=== PATIENT | female | born 1970 | race Caucasian/White ===

== ENCOUNTER 2016-11-07 01:06 | Emergency (ER) | payer BC ==
[~2016-11-07] VITALS: Ht 157.5 cm; Wt 87.3 kg
[~2016-11-07 01:06] MED LIST: GLC5 PO; GLC500 PO; MELO15TA3 PO; MULT-506 PO
[2016-11-07 01:13] VITALS: O2SAT 98
[2016-11-07 01:17] VITALS: TEMP 36.8; Ht 157.5 cm; Wt 87.3 kg
[2016-11-07] MEDS ORDERED: LORAZEPAM 2 MG/ML 1 ML VIAL IV STA (01:25)
[2016-11-07 01:57] LABS: MEAN CELL VOLUME 88.7 fL (80-100); MEAN CORPUSCULAR HEMOGLOBIN 30.8 pg (25-34); MEAN CORPUSCULAR HGB CONC 34.8 g/dl (32-36); MEAN PLATELET VOLUME 9.3 fL (7.4-10.4); PLATELET COUNT 284 K/uL (130-400); RED BLOOD COUNT 4.51 M/uL (4.2-5.4); WHITE BLOOD COUNT 6.73 K/uL (4.8-10.8)
[2016-11-07] MEDS ORDERED: SITA100T3 PO (02:14)
[2016-11-07] MEDS ORDERED: GLIP10TA3 PO (02:15)
[2016-11-07] MEDS ORDERED: METF-384 PO (02:16)
[2016-11-07 02:20] LABS: PREG INTERNAL NEGATIVE QC NEG CLEAR BACKGROUND; PREG INTERNAL POSITIVE QC POS CONTROL LINE
[2016-11-07] MEDS ORDERED: SODIUM CHLORIDE 0.9% 500ML 500 ML IV STA (02:23)
[2016-11-07 02:30] LABS: ALKALINE PHOSPHATASE 28 U/L (45-117); ALT/SGPT 30 U/L (12-78); AST/SGOT 15 U/L (15-37); BLOOD UREA NITROGEN 10 mg/dl (7-18); CALCIUM 9.1 mg/dl (8.5-10.1); CARBON DIOXIDE 29 mmol/L (21-32); CHLORIDE 97 mmol/L (98-107); CREATININE 0.87 mg/dl (0.60-1.20); GLUCOSE 248 mg/dl (70-99); POTASSIUM 3.7 mmol/L (3.5-5.1); SODIUM 138 mmol/L (136-145)
[2016-11-07] MEDS ORDERED: OPTIRAY 320 IV PRN (02:30)
[2016-11-07 02:57] LABS: BASO % 0.4 %; BASO ABS # 0.03 K/uL (0-0.2); COMPLETE YES; EOS % 1.5 %; IG% 0.3 %; LYMPH % 51.4 %; LYMPH ABS # 3.46 K/uL (1.2-3.4); MONO % 4.6 %; NEUT % 41.8 %
--- NOTE | 2016-11-07 05:45 | EMERGENCY ROOM VISIT NOTE ---
History First contact with patient: 01:21 Chief Complaint: CHEST PAIN Stated Complaint: CHEST PAIN-LEFT SHOULDER DOWN TO HAND Nursing Triage Summary: pt states cp began about 40min night order selector, some sob, nausea and diaphoresis. pain in left shoudler with numbness radiating down left arm History of Present Illness The patient is a 46 year old female who presents to the Emergency Room with complaints of chest pain for the past few hours who has been underneath more stress. Patient suffers from anxiety. Patient denies prior heart disease or family history of heart disease. She does have diabetes. Patient denies fever , chills, cough, congestion, abdominal pain, leg pain or swelling, lightheadedness, dizziness, nausea, diaphoresis. No recent travel. No control. Review of Systems See HPI for pertinent positives & negatives. A total of 10 systems reviewed and were otherwise negative. Past Medical/Surgical History Medical Problems: (1) Arthroscopy of knee joint (2) Diabetes mellitus type 2 (3) Dilation and curettage Social History Smoking Status: Never Smoker Drug Use: none Marital Status: Housing Status: lives with family Occupation Status: employed Current/Historical Medications Scheduled Glipizide (Glucotrol), 10 MG PO BID Metformin Hcl (Glucophage), 1,000 MG PO BID Sitagliptin Phosphate (Januvia), 100 MG PO DAILY Allergies Coded Allergies: Adhesives (Verified Adverse Reaction, Unknown, SKIN DISCOLORATION, ) Physical Exam Vital Signs Date Time Temp Pulse Resp B/P Pulse Ox O2 Delivery O2 Flow Rate FiO2 11/07/16 03:41 85 17 114/66 94 Room Air 11/07/16 03:11 83 16 118/80 97 Room Air 11/07/16 02:41 87 18 123/73 95 Room Air 11/07/16 01:25 83 11/07/16 01:17 36.8 83 21 134/87 98 Room Air 11/07/16 01:13 98 Room Air Physical Exam VITALS: Vitals are noted on the nurse's note and reviewed by myself. Vital signs stable. GENERAL: Pleasant female anxious-appearing, in no acute distress, nondiaphoretic , well-developed well-nourished. SKIN: The skin was without rashes, erythema, edema, or bruising. There is no tenting of the skin. Capillary reflex less than 2 seconds. HEAD: Normocephalic atraumatic. EARS: External auditory canals clear, tympanic membranes pearly garcia without erythema or effusion bilaterally. EYES: Pupils equal round and reactive to light and accommodation. Conjunctivae without injection, sclerae without icterus. Extraocular movements intact. NOSE: Patent, turbinates without inflammation or discharge. MOUTH: Mucous membranes moist. Pharynx without erythema or exudate. Uvula midline. Airway patent. Tongue does not deviate. NECK: Supple without nuchal rigidity. No lymphadenopathy. No thyromegaly. Cervical spine is nontender. No JVD. HEART: Regular rate and rhythm without murmurs gallops or rubs. Chest nontender to palpation LUNGS: Clear to auscultation bilaterally without wheezes, rales or rhonchi. No dullness to percussion. No retractions or accessory muscle use. ABDOMEN: Positive bowel sounds x 4. Normal tympanic percussion. Soft, nontender, without masses or organomegaly. Robertson sign negative. No guarding or rebound tenderness. MUSCULOSKELETAL: No muscle atrophy, erythema, or edema noted. NEURO: Patient was alert and oriented to person place and time. Normal sensation to light and sharp touch. No focal neurological deficits. Medical Decision & Procedures Laboratory Results 11/07/16 01:36 Red Blood Count 4.51, Mean Corpuscular Volume 88.7, Mean Corpuscular Hemoglobin 30.8, Mean Corpuscular Hemoglobin Concent 34.8, Mean Platelet Volume 9.3, Neutrophils (%) (Auto) 41.8, Lymphocytes (%) (Auto) 51.4, Monocytes (%) (Auto) 4.6, Eosinophils (%) (Auto) 1.5, Basophils (%) (Auto) 0.4, Neutrophils # (Auto) 2.81, Lymphocytes # (Auto) 3.46, Monocytes # (Auto) 0.31, Eosinophils # (Auto) 0.10, Basophils # (Auto) 0.03 11/07/16 01:36 Test 11/07/16 01:36 11/07/16 01:42 11/07/16 04:47 White Blood Count 6.73 K/uL (4.8-10.8) Red Blood Count 4.51 M/uL (4.2-5.4) Hemoglobin 13.9 g/dL (12.0-16.0) Hematocrit 40.0 % (37-47) Mean Corpuscular Volume 88.7 fL (80-100) Mean Corpuscular Hemoglobin 30.8 pg (25-34) Mean Corpuscular Hemoglobin Concent 34.8 g/dl (32-36) Platelet Count 284 K/uL (130-400) Mean Platelet Volume 9.3 fL (7.4-10.4) Neutrophils (%) (Auto) 41.8 % Lymphocytes (%) (Auto) 51.4 % Monocytes (%) (Auto) 4.6 % Eosinophils (%) (Auto) 1.5 % Basophils (%) (Auto) 0.4 % Neutrophils # (Auto) 2.81 K/uL (1.4-6.5) Lymphocytes # (Auto) 3.46 K/uL (1.2-3.4) Monocytes # (Auto) 0.31 K/uL (0.11-0.59) Eosinophils # (Auto) 0.10 K/uL (0-0.5) Basophils # (Auto) 0.03 K/uL (0-0.2) RDW Standard Deviation 39.8 fL (36.4-46.3) RDW Coefficient of Variation 12.5 % (11.5-14.5) Immature Granulocyte % (Auto) 0.3 % Immature Granulocyte # (Auto) 0.02 K/uL (0.00-0.02) Red Blood Cell Morphology Unremarkable Anion Gap 12.0 mmol/L (3-11) Est Creatinine Clear Calc Drug Dose 81.1 ml/min Estimated GFR () 91.3 Estimated GFR (Non- 78.8 BUN/Creatinine Ratio 12.0 (10-20) Calcium Level 9.1 mg/dl (8.5-10.1) Total Bilirubin 0.5 mg/dl (0.2-1) Direct Bilirubin mg/dl (0-0.2) Aspartate Amino Transf (AST/SGOT) 15 U/L (15-37) Alanine Aminotransferase (ALT/SGPT) 30 U/L (12-78) Alkaline Phosphatase 28 U/L (45-117) Total Creatine Kinase 64 U/L (26-192) Creatine Kinase MB < 0.5 ng/ml (0.5-3.6) Creatine Kinase MB Ratio (0-3.0) Total Protein 6.7 gm/dl (6.4-8.2) Albumin 3.5 gm/dl (3.4-5.0) Lipase 186 U/L (73-393) Human Chorionic Gonadotropin, Qual NEG (NEG) Chemistry Specimen Hemolysis Bedside D-Dimer > 450 ng/mlFEU (0-450) Troponin I < 0.015 ng/ml (0-0.045) Medications Administered Medications (Trade) Dose Ordered Sig/Willie Route Start Time Stop Time Status Last Admin Dose Admin Lorazepam 1 mg 1 mg NOW STAT IV 11/07/16 01:25 11/07/16 01:26 DC 11/07/16 01:47 1 MG Sodium Chloride (Nss 500ml) 500 ml @ 999 mls/hr Q31M STAT IV 11/07/16 02:23 11/07/16 02:53 DC 11/07/16 02:47 999 MLS/HR ED Course Prior records/ancillary studies reviewed. Triage Nursing notes reviewed. Additional history obtained from family. The patient's history was concerning for chest pain. Differential diagnosis: Etiologies such as cardiac ischemia, aortic dissection, pulmonary embolism, pneumonia, pneumothorax, musculoskeletal, infections, pericarditis, myocarditis , esophageal rupture, gastrointestinal, as well as others were entertained. Physical examination: As above. ER treatment provided: ativan On reassessment the patient felt better. Diagnostic interpretation by me: The electrocardiogram was negative for pathologic change. Normal sinus, normal intervals, no acute ST-T wave changes. Impression normal sinus interpreted by myself The labs revealed negative troponin 2 hyperglycemia without DKA Imaging studies: Chest x-ray with no acute consolidation or pneumothorax per my interpretation CTA negative for PE per stat radiology Exam and history seem consistent with noncardiac chest pain. Patient felt much better after being medicated as above. Negative CTA. 2 troponins negative 2 that are 2 hours apart. Normal EKG. She was advised to rest, stay well- hydrated, decrease stress and to follow-up with family care in a day or 2 or here in the ER sooner for chest pain, difficulty breathing, worsening signs or symptoms or as needed. She was advised to monitor her blood sugars as it was high today.By the evaluation outlined above emergent etiologies such as cardiac ischemia, aortic dissection, pulmonary embolism, pneumonia, pneumothorax, infections, pericarditis, myocarditis, gastrointestinal, as well as others were deemed relatively unlikely. The pt informed about the findings as listed above. All questions were answered and pleased with the treatment. Return instructions were outlined and the patient was discharged in stable condition. Referral: The patient was referred back to primary care physician for follow-up in 2 to 3 days for a recheck of the current condition. Case reviewed with my attending Medical Decision As above Impression Primary Impression: Precordial chest pain Additional Impression: Hyperglycemia due to type 2 diabetes mellitus Departure Information Dispostion Home / Self-Care Condition GOOD Referrals Mirta Ang D.O. (PCP) Patient Instructions My [facility] Additional Instructions Ibuprofen(Motrin, Advil) may be used for fever or pain. Use 600mg every six hours as needed. Take with food. Avoid using more than 2400mg in a 24 hour period. Do not use 2400mg per day for more than three consecutive days without physician direction. Prolonged inappropriate use can lead to stomach upset or ulcers. (AND/OR) Acetaminophen(Tylenol) may be used for fever or pain. Use 1000mg every six hours as needed. Avoid using more than 3000mg in a 24 hour period. Monitor your blood sugars. Rest and drink plenty of fluids as tolerated. Continue current medications. Avoid strenuous activities and anything that worsens your pain. Resume normal activities once your symptoms resolve. Return to the ER immediately for worsening or persistent chest pain, abdominal pain, vomiting, fevers, chest pains, difficulty breathing, worsening of your condition, or as needed. Follow up with your primary physician in 2-3 days for a recheck of your current condition. Problem Qualifiers Additional Impression: Hyperglycemia due to type 2 diabetes mellitus Diabetes mellitus alf insulin use: with alf use Qualified Codes: E11.65 - Type 2 diabetes mellitus with hyperglycemia; Z79.4 - senior living ( current) use of insulin
[2016-11-07 06:03] VITALS: BP 113/63; PULSE 81; O2SAT 95
--- NOTE | 2016-11-07 09:13 | DIAGNOSTIC IMAGING REPORT ---
CT ANGIOGRAM OF THE CHEST CLINICAL HISTORY: Atypical chest pain. COMPARISON STUDY: Chest x-ray dated 11/07/2016. TECHNIQUE: Following the IV administration of 89 cc of Optiray 320, CT angiogram of the chest was performed from the upper abdomen to the thoracic inlet utilizing the pulmonary embolus protocol. Images are reviewed in the axial, sagittal, and coronal planes. 3-D MIPS images are created and assessed. IV contrast was administered without complication. CT DOSE: 429.80 mGy.cm FINDINGS: Thyroid: Imaged portions of the thyroid gland are normal in size and attenuation. Thoracic aorta: The thoracic aorta is normal in caliber and demonstrates standard 3-vessel arch anatomy. No dissection is seen. Pulmonary vasculature: The pulmonary trunk is normal in caliber. There are no filling defects identified in main, lobar, or segmental pulmonary branches to suggest pulmonary embolus. Heart: The heart is normal in size and configuration, and without pericardial effusion. Lungs and pleural spaces: The lungs and pleural spaces are clear. The trachea and central airways are patent. Mediastinum: There is no mediastinal lymphadenopathy. [place]: Clear. Axillae: There is no axillary lymphadenopathy. Upper abdomen: There is a small hiatal hernia. The liver is steatotic. Skeletal structures: No lytic or blastic bony lesions are seen. IMPRESSION: 1. There is no evidence of pulmonary embolus in the main, lobar, or segmental pulmonary arteries. 2. The lungs are clear. 3. Hepatic steatosis. Electronically signed by: Luis Eduardo Mercado M.D. 11/07/2016 9:11 AM Dictated Date/Time: 11/07/2016 9:08 AM
--- NOTE | 2016-11-07 10:06 | DIAGNOSTIC IMAGING REPORT ---
SINGLE VIEW CHEST CLINICAL HISTORY: Atypical chest pain. FINDINGS: An AP, portable, upright chest radiograph is obtained. No prior studies are available for comparison at the time of dictation. The examination is degraded by portable technique, large body habitus, and patient rotation. The cardiomediastinal silhouette is unremarkable. There are low lung volumes with bibasilar atelectasis. The lungs and pleural spaces are otherwise clear. No pneumothorax is seen. The bony thorax is grossly intact. IMPRESSION: Low lung volumes with no active disease in the chest. Electronically signed by: Luis Eduardo Mercado M.D. 11/07/2016 10:04 AM Dictated Date/Time: 11/07/2016 10:04 AM
== END 2016-11-07 06:05 | disposition home or self-care (01) ==
LOC: C.EDB 01:07
DX: R07.2 Precordial pain (principal); E11.65 Type 2 diabetes mellitus with hyperglycemia; Z98.890 Other specified postprocedural states; Z79.84 Long term (current) use of oral hypoglycemic drugs; Z91.09 Other allergy status, other than to drugs and biological substances

== ENCOUNTER → 2017-02-19 | Outpatient (CLI) | payer BC ==
[~2017-02-19] MED LIST changes: -GLC5 PO; -GLC500 PO; +GLIP10TA3 PO; -MELO15TA3 PO; +METF-384 PO; -MULT-506 PO; +SITA100T3 PO
== END | disposition home or self-care (01) ==
LOC: C.LABSPEC 13:36
PROVIDERS: ATTEND Obstetrics & Gynecology
DX: B37.3 Candidiasis of vulva and vagina (principal)

== ENCOUNTER → 2017-02-19 | Outpatient (CLI) | payer BC | END | disposition home or self-care (01) | LOC: C.LAB1850 08:25 | PROVIDERS: ATTEND Obstetrics & Gynecology | DX: N95.1 Menopausal and female climacteric states (principal) ==

== ENCOUNTER → 2017-03-11 | Outpatient (CLI) | payer BC ==
[2017-03-17 12:23] LABS: HERPES SIMPLEX CULT SOURCE OTHER-VULVA; HERPES SIMPLEX VIRUS CULT NOT ISOLATED (NOT ISOLATED)
== END | disposition home or self-care (01) ==
LOC: C.LABSPEC 11:48
PROVIDERS: ATTEND Physician Assistant
DX: N90.89 Other specified noninflammatory disorders of vulva and perineum (principal)

== ENCOUNTER 2020-04-01 20:43 | Inpatient (IN) ==
--- OUTSIDE RECORDS SUMMARY | 2020-04-01 20:45 | External Medical Summary | Continuity of Care Document ---
:1970 Author Name Maritza Metzger, Provider Address Unavailable Unavailable , Care Team Providers Name Role Phone Sumeet Omer [email or web address] [email or web address] PA-C, [email or web address] SUMEET OMER M.D. Unavailable Unavailable Unavailable Unavailable Unavailable Problems Perimenopause (627.2) (N95.1) Anxiety (300.00) (F41.9) Encounter for routine gynecological examination (V72.31) (Z0 1.419) Irregular menstrual cycle (626.4) (N92.6) Pap smear for cervical cancer screening (V76.2) (Z12.4) Heart murmur (785.2) (R01.1) Pelvic pain (R10.2) Hypercholesterolemia (272.0) (E78.00) Hypertension (401.9) (I10) Type 2 diabetes mellitus (250.00) (E11.9) Osteoarthritis of knees, bilateral (715.96) (M17.0) Vulvovaginitis due to yeast (112.1) (B37.3) Vulvar itching (698.1) (L29.2) Skin cyst (706.2) (L72.9) Vulvar fissure (624.8) (N90.89) Allergies and Adverse Reactions Percocet TABS (Allergy) Propylene Glycol LIQD (Allergy) Remeron (Allergy) Medications metFORMIN HCl - 1000 MG Oral Tablet; RAMANA E ONE TABLET BY MOUTH TWICE DAILY. TAKE WITH FOOD Domenica Omer Quantity: 180 Refills: 3 glipiZIDE 5 MG Oral Tablet; TAKE 1 TABLET TWICE DAILY. Domenica Aquino Quantity: 180 Refills: 3 Januvia 100 MG Oral Tablet; take 1 tablet by mouth once aureliano y Quantity: 30 Refills: 5 Jardiance 10 MG Oral Tablet; TAKE 1 TABLET BY MOUTH ONCE LEANN LY Start: 22-Apr-2018 Refills: 0 traMADol HCl - 50 MG Oral Tablet; TAKE ONE TABLET BY MOUTH T HREE TIMES DAILY Start: 22-Apr-2018 Quantity: 40 Refills: 0 Cymbalta 30 MG Oral Capsule Delayed Rele ase Particles; take 1 capsule by mouth once daily Start: 22-Apr-2018 Refills: 0 Meloxicam 15 MG Oral Tablet; TAKE 1 TABLET DAILY. Start: 22-Apr-2018 Quantity: 30 Refills: 5 Metoprolol Tartrate 25 MG Oral Tablet; TAKE 1 TABLET DAILY. Quantity: 90 Refills: 3 Pravastatin Sodium 80 MG Oral Tablet; TAKE 1 TABLET AT BEDTI ME Start: 22-Apr-2018 Quantity: 90 Refills: 3 Nystatin-Triamcinolone 713892-0.1 UNIT/G M-% External Ointment; APPLY SPARINGLY TO AFFECTED AREA TWICE A DAY FOR 7 TO 14 DAYS. TENZIN Blevins Start: 02-Jun-2017 Quantity: 1 60 GM Tube Refills: 0 LORazepam 0.5 MG Oral Tablet; TAKE 1 TABLET Every 8 ho urs Domenica Martines Start: 22-Apr-2018 Quantity: 30 Refills: 1 hydrOXYzine HCl - 25 MG Oral Tablet; TAKE 1 TABLET AT BEDTIM E NEEDED. Quantity: 14 Refills: 1 Procedures History of Dilation And Curettage Status : Completed History of Hysteroscopy With Endometrial Ablation Status: Completed History of uterine surgery Status: Compl eted History of Hemorrhoidectomy Status: Comp leted History of Knee Surgery Status: Complete d Immunizations Immunizations not documented Family History Mother Family history of Alzheimer's disease (V17.2) (Z82.0) Status : Active Family history of Anxiety (300.00) (F41.9) Status: Active Family history of depression (V17.0) (Z81.8) Status: Active Family history of diabetes mellitus (V18.0) (Z83.3) Status: Active Sibling Family history of Anxiety (300.00) (F41.9) Status: Active Family history of depression (V17.0) (Z81.8) Status: Active Social History - Smoking Status Ex-smoker Plan of Treatment Planned Observations Planned Goals not documented Results No Known Results Results not documented Encounters Appointment; Sumeet Omer M.D. 01-Jun-2018 10:30 Encounter Diagnosis: Problem not documented Appointment; Sumeet Omer M.D. 22-Apr-2018 14:30 Encounter Diagnosis: Problem not documented Appointment; [place] [id number] 22-Apr-2018 14:15 Encounter Diagnosis: Problem not documented Appointment; Sumeet Omer M.D. 05-Jul-2018 16:00 Encounter Diagnosis: Problem not documented
[2020-04-01 21:59] LABS: Amphetamines+Metham, Urine Neg (Neg); Barbiturates, Urine Neg (Neg); Benzodiazepine, Urine Neg (Neg); Cocaine, Urine Neg (Neg); MDMA (Ecstacy), Urine Neg (Neg); Methadone, Urine Neg (Neg); Opiate, Urine Neg (Neg); Phencyclidine, Urine Neg (Neg)
[2020-04-01 22:01] LABS: Pregnancy Test, Urine Negative (Negative)
[2020-04-01 22:01] LABS: Appearance Urine Clear (Clear); Bilirubin Urine Negative (Negative); Blood Urine Negative (Negative); Color Urine Yellow; Glucose Urine UA 3+ (Negative); Ketones Urine Trace (Negative); Leukocyte Esterase Urine Negative (Negative); Nitrite Urine Negative (Negative); Protein Urine Negative (Negative); Specific Gravity Urine 1.016 (1.000-1.030); Urobilinogen Urine Negative (Negative)
[2020-04-01 22:24] LABS: Basophils # (auto) 0.04 K/uL (0-0.2); Basophils % (auto) 0.4 %; Eosinophils # (auto) 0.03 K/uL (0-0.5); Eosinophils % (auto) 0.3 %; Hematocrit (blood only) 42.1 % (37-47); Hemoglobin 14.5 g/dL (12.0-16.0); Immature Granulocytes # (auto) 0.02 K/uL (0.00-0.02); Immature Granulocytes % (auto) 0.2 %; Lymphocytes # (auto) 2.89 K/uL (1.2-3.4); Lymphocytes % (auto) 30.3 %; Mean Corpuscular Hemoglobin 30.6 pg (25-34); Mean Corpuscular Hgb Conc 34.4 g/dL (32-36); Mean Corpuscular Volume 88.8 fL (80-100); Mean Platelet Volume 9.5 fL (7.4-10.4); Monocytes # (auto) 0.38 K/uL (0.11-0.59); Neutrophils # (auto) 6.18 K/uL (1.4-6.5); Neutrophils % (auto) 64.8 %; Platelet Count 312 K/uL (130-400); RDW Coefficient of Variation 12.8 % (11.5-14.5); RDW Standard Deviation 40.8 fL (36.4-46.3); Red Blood Count 4.74 M/uL (4.2-5.4); White Blood Count 9.54 K/uL (4.8-10.8)
[2020-04-01 22:42] LABS: Salicylate 2.2 mg/dl (2.8-20)
[2020-04-01 22:43] LABS: Acetaminophen < 2 ug/ml (10-30); Alanine Aminotransferase 25 U/L (12-78); Albumin Level 3.9 gm/dl (3.4-5.0); Aspartate Aminotransferase 14 U/L (15-37); BUN Creatinine Ratio 8.6 (10-20); Blood Urea Nitrogen 7 mg/dl (7-18); Calcium 9.4 mg/dl (8.5-10.1); Carbon Dioxide 28 mmol/L (21-32); Chloride 98 mmol/L (98-107); Est GFR (African American) 90.7; Est GFR (Non-African American) 78.2; Glucose 287 mg/dl (70-99); Potassium 3.3 mmol/L (3.5-5.1); Sodium 135 mmol/L (136-145)
[2020-04-01 22:54] LABS: Albumin Globulin Ratio 1.1 (0.9-2); Alkaline Phosphatase 40 U/L (45-117); Bilirubin,Total 0.5 mg/dl (0.2-1); Globulin 3.7 gm/dl (2.5-4.0); Total Protein 7.6 gm/dl (6.4-8.2)
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
[2020-04-02] MEDS ORDERED: SODIUM CHLORIDE 0.65% NA SOLN 45 ML (OCEAN) PRN (03:58)
[2020-04-02] MEDS ORDERED: BISMUTH SUBSALICYLATE PER ML OMNICELL CHARGE PO PRN (03:58)
[2020-04-02] MEDS ORDERED: MAGNESIUM HYDROXIDE SUSP 30 ML UDC PO PRN (03:58)
[2020-04-02] MEDS ORDERED: ALUMINUM/MAGNESIUM SUSP 30 ML UDC PO PRN (03:58)
[2020-04-02] MEDS ORDERED: ACETAMINOPHEN 325 MG TAB PO PRN (03:58)
[2020-04-02] MEDS ORDERED: METOPROLOL TARTRATE 25 MG TAB PO ONE (07:45)
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
[2020-04-02] MEDS ORDERED: PHARMACY GLYCEMIC MGMT CONSULT PRN (08:41)
[2020-04-02] MEDS: DULOXETINE HCL 60 MG CAP PO SCH (08:47)
[2020-04-02] MEDS: DULOXETINE HCL 20 MG CAP PO SCH (08:47)
[2020-04-02] MEDS ORDERED: DEXTROSE 50% 50 ML SYRINGE IV PRN (09:00)
[2020-04-02] MEDS ORDERED: GLUCAGON FOR INJ 1 MG VIAL IM PRN (09:00)
[2020-04-02] MEDS ORDERED: DULOXETINE HCL 20 MG CAP PO SCH (09:00)
[2020-04-02] MEDS ORDERED: GLUCOSE 10 TABS/TUBE PO PRN (09:00)
[2020-04-02] MEDS ORDERED: CARBOHYDRATES FOR HYPOGLYCEMIA PO PRN (09:00)
[2020-04-02] MEDS ORDERED: INSULIN GLARGINE SOLOSTAR 100 UNITS/ML 3 ML PEN SC SCH ×3 (09:00→21:00)
[2020-04-02] MEDS ORDERED: BuPROPion XL 150 MG TABCR PO SCH (09:00)
[2020-04-02] MEDS ORDERED: GLUCOSE 40% GEL 15 GM TUBE PO PRN (09:00)
[2020-04-02] MEDS: INSULIN ASPART 100 UNITS/ML 3 ML PEN SC SCH ×4 (09:39→21:04)
--- NOTE | 2020-04-02 10:22 | Pharmacy Report ---
Glycemic Control Consultation - Date of Service April 02, 2020 - Scope Scope: Glycemic Pharmacist consulted for glycemic control and to write orders per [facility] inpatient glycemic control protocol. - Objective Weight: 71.5 kg Accuchecks BSG (last 24hrs): 04/01/20 04/02/20 22:01 07:47 Glucose 287 H POC Glucose 213 H Laboratory Data (last 24hrs): 04/01/20 22:01 Potassium 3.3 L Carbon Dioxide 28 Anion Gap 9.0 Creatinine 0.86 Est Cr Clr Drug Dosing Not Reportable - Recent Pertinent Medications Outpatient Anti-diabetic Regimen: * Trulicity 0.75 mg SQ weekly * Jardiance 25 mg PO qAM * Lantus 15 units nightly * metformin? (found in pill bag) Risk Factors for Insulin Resistance: * Diet: T2DM * Mechanical Ventilation: - Assessment & Plan Assessment & Plan: ASSESSMENT: * Ms Boateng is a 49 y/o F with a PMH of T2DM on two injectables and one or two oral medications. She presents with MDD and a BSG of 213 mg/dL. * Will start weight-based Lantus and Novolog dosing. Give 10 units at first (weight-based stress of 2) then provide a scale for this evening based upon weight. Novolog weight-based stress of 2. * Pt is maintained on oral antidiabetic agents as an outpatient * Oral agents are not recommended for inpatient use d/t drug interactions, changing PO intake, and difficulty titrating for acute hyper/hypoglycemia. ADA recommends re-initiating outpatient oral agents 1-2 days prior to discharge if/when appropriate if they were held on admission. * Will hold oral agents for admission and utilize SQ basal bolus insulin regimen which is the recommended regimen for inpatient glycemic control. * Will initiate weight based insulin dosing for insulin carrie patient and titrate based on BSG trends. PLAN FOR INPATIENT GLYCEMIC CONTROL: * Holding outpatient oral diabetes medications * Basal insulin * Lantus 10 units SQ x 1 then 10-20 units SQ BID * 10 units if BSG < 180 mg/dL * 15 units if BSG 180-250 mg/dL * 20 units if BSG > 250 mg/dL * Bolus insulin * NovoLog per scale ACHS or Q6hrs while NPO * Goal Range: Low 110 mg/dL - High 140 mg/dL * Correction Factor: 30 mg/dL/unit * Nutritional / Prandial insulin per carb ratio of 1 unit per 10 grams CHO consumed * Please note that the plan above was derived based on current level of insulin resistance and hospital stress. These recommendations are appropriate for inpatient admission only. Plan of care upon discharge will need to be reassessed to avoid potential outpatient hypo/hyperglycemia. Thank you.
[2020-04-02] MEDS ORDERED: INSULIN ASPART 100 UNITS/ML 3 ML PEN SC SCH (13:21)
[2020-04-02] MEDS ORDERED: METOPROLOL TARTRATE 25 MG TAB PO STA (14:50)
[2020-04-02] MEDS ORDERED: ONDANSETRON 4 MG OD TAB PO PRN (16:40)
[2020-04-02] MEDS ORDERED: METFORMIN HCL 500 MG TAB PO SCH (17:45)
[2020-04-02] MEDS: METOPROLOL TARTRATE 25 MG TAB PO SCH (21:25)
[2020-04-02] MEDS ORDERED: INSULIN GLARGINE SOLOSTAR 100 UNITS/ML 3 ML PEN SQ SCH (22:00)
[2020-04-03] MEDS: LORATADINE 10 MG TAB PO SCH (08:43)
[2020-04-03] MEDS: ASPIRIN 81 MG ECTAB PO SCH (08:44)
[2020-04-03] MEDS: METOPROLOL TARTRATE 25 MG TAB PO SCH (08:44)
[2020-04-03] MEDS: DULOXETINE HCL 20 MG CAP PO SCH (08:44)
[2020-04-03] MEDS: DULOXETINE HCL 60 MG CAP PO SCH (08:44)
[2020-04-03] MEDS: CHOLECALCIFEROL 1,000 UNITS 25 MCG TAB PO SCH (08:45)
[2020-04-03] MEDS: PANTOprazole 40 MG TAB PO SCH (08:45)
[2020-04-03] MEDS ORDERED: NON-FORMULARY MEDICATION (Empagliflozin [Jardiance] 25 MG) PO SCH (09:00)
[2020-04-03] MEDS ORDERED: METOPROLOL TARTRATE 25 MG TAB PO SCH (09:00)
[2020-04-03] MEDS: INSULIN ASPART 100 UNITS/ML 3 ML PEN SC SCH ×4 (09:30→20:58)
[2020-04-03] MEDS: INSULIN GLARGINE SOLOSTAR 100 UNITS/ML 3 ML PEN SC SCH ×2 (09:32→20:57)
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
--- NOTE | 2020-04-03 11:28 | Communication Note ---
Date of Service: April 03, 2020 [facility] Saw PCP, Con Oquendo DO, on 10/25/2019 for increasing anxiety and irritability. She reported marital conflict , and was prescribed Ativan 0.5 mg twice daily as needed. She was instructed to follow-up in 6 months.
--- NOTE | 2020-04-03 13:37 | Pharmacy Report ---
Glycemic Control Progress Note - Date of Service April 03, 2020 - Scope Glycemic Pharmacist consulted for glycemic control to write orders per [facility] inpatient glycemic control protocol. - Objective Accuchecks BSG(last 24 hours):: 04/02/20 04/02/20 04/03/20 17:27 20:24 08:04 POC Glucose 201 H 210 H 247 H 04/03/20 12:21 POC Glucose 238 H - Recent Pertinent Medications The patient is currently receiving: * Basal insulin: Lantus 10-15 units every 12 hours * Correctional Insulin: Novolog Correction per scale ACHS Goal Range: Low 110 mg/dL - High 140 mg/dL Correction Factor: 30 mg/dL/unit * Prandial insulin: Per carb ratio of 1 unit per 10 grams CHO consumed - Outpatient Anti-Diabetic Meds Trulicity 0.75 mg weekly SQ Lantus 15 units qAM Jardiance 25 mg PO qAM - Assessment & Plan ASSESSMENT: * See progress note from 04/02/2020 for more background info, in short: * Pt receiving SQ basal bolus insulin regimen for hyperglycemia secondary to baseline DM (outpatient regimen on hold). * Patient is currently receiving an average of 41 units of insulin per day * 25 units of basal insulin * 21 units of prandial/correctional insulin * BSGs ranging 201 - 213 mg/dl over the past 24hrs * Changes needed to insulin regimen: * AM Fasting BSG = 247 mg/dl. This is above goal range for patient based on inpatient targets and co-morbidities. Therefore Basal insulin will be increased by 20% to 18 units SQ BID. * Post-prandial BSGs were stable yesterday but will tighten to weight-based stress of 3 * Total daily dose = ~60 units. Increased insulin appropriately. * Additional notes / comments: hold oral agents PLAN FOR INPATIENT GLYCEMIC CONTROL: * INCREASING Lantus/NPH to 16 units SQ BID * TIGHTENING correction factor to 20 mg/dl/unit * TIGHTENING carb ratio to 1 unit per 7 grams CHO consumed * Continuing goal range of Low 110 mg/dL - High 140 mg/dL * Please note that the plan above was derived based on current level of insulin resistance and hospital stress. These recommendations are appropriate for inpatient admission only. Plan of care upon discharge will need to be reassessed to avoid potential outpatient hypo/hyperglycemia. Thank you.
[2020-04-03] MEDS: METOPROLOL TARTRATE 50 MG TAB PO SCH (21:00)
[2020-04-03 22:54] LABS: Marijuana Quant, GCMS Urine >5000 ng/mL (<5)
[2020-04-04] MEDS: DULOXETINE HCL 20 MG CAP PO SCH (09:34)
[2020-04-04] MEDS: LORATADINE 10 MG TAB PO SCH (09:34)
[2020-04-04] MEDS: METOPROLOL TARTRATE 50 MG TAB PO SCH ×2 (09:35→20:50)
[2020-04-04] MEDS: DULOXETINE HCL 60 MG CAP PO SCH (09:35)
[2020-04-04] MEDS: ASPIRIN 81 MG ECTAB PO SCH (09:35)
[2020-04-04] MEDS: PANTOprazole 40 MG TAB PO SCH (09:36)
[2020-04-04] MEDS: CHOLECALCIFEROL 1,000 UNITS 25 MCG TAB PO SCH (09:36)
[2020-04-04] MEDS: INSULIN GLARGINE SOLOSTAR 100 UNITS/ML 3 ML PEN SC SCH ×2 (09:39→20:51)
[2020-04-04] MEDS: INSULIN ASPART 100 UNITS/ML 3 ML PEN SC SCH ×4 (09:40→20:52)
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
--- NOTE | 2020-04-04 13:57 | Pharmacy Report ---
Pharmacy Glycemic Short Note 2 - Date of Service April 04, 2020 - Glycemic Short BSG Results (Last 24 hours): 04/03/20 04/03/20 04/04/20 17:18 20:35 08:40 POC Glucose 237 H 278 H 228 H 04/04/20 12:41 POC Glucose 258 H ASSESSMENT: 04/04 * Patient received total of 68 units of insulin yesterday, of which 32 units were basal insulin * Fasting BSG this AM elevated at 228 mg/dL - plan to increase ~25% * Tighten CF/CR - plan to order A1C for tomorrow as unclear outpatient BSG control PLAN FOR INPATIENT GLYCEMIC CONTROL: * Hold outpatient oral diabetes medications * Basal insulin - increase * Lantus 20 units SQ BID * Bolus insulin * NovoLog per scale ACHS or Q6hrs while NPO * Goal Range: Low 110 mg/dL - High 140 mg/dL * Correction Factor: 12 mg/dL/unit * Nutritional / Prandial insulin per carb ratio of 1 unit per 4 grams CHO consumed PLAN FOR DISCHARGE: * tbd
[2020-04-05 07:47] LABS: Estimated Average Glucose 197 mg/dl; Hemoglobin A1C 8.5 % (4.5-5.6)
[2020-04-05] MEDS: ASPIRIN 81 MG ECTAB PO SCH (08:35)
[2020-04-05] MEDS: DULOXETINE HCL 20 MG CAP PO SCH (08:35)
[2020-04-05] MEDS: LORATADINE 10 MG TAB PO SCH (08:35)
[2020-04-05] MEDS: DULOXETINE HCL 60 MG CAP PO SCH (08:35)
[2020-04-05] MEDS: METOPROLOL TARTRATE 50 MG TAB PO SCH (08:35)
[2020-04-05] MEDS: PANTOprazole 40 MG TAB PO SCH (08:36)
[2020-04-05] MEDS: CHOLECALCIFEROL 1,000 UNITS 25 MCG TAB PO SCH (08:36)
[2020-04-05] MEDS ORDERED: INSULIN GLARGINE SOLOSTAR 100 UNITS/ML 3 ML PEN SC SCH (09:00)
[2020-04-05] MEDS: INSULIN ASPART 100 UNITS/ML 3 ML PEN SC SCH (09:21)
--- NOTE | 2020-04-05 12:10 | Discharge Summary ---
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 Albumin/Globulin Ratio TSH Urine Color Urine Appearance Urine pH Ur Specific Taylor Urine Protein Urine Glucose (UA) Urine Ketones Urine Blood Urine Nitrite Urine Bilirubin Urine Urobilinogen Ur Leukocyte Esterase Urine Test Salicylates Urine Opiates Screen Ur Methadone, Qual Acetaminophen Urine Barbiturates Ur Phencyclidine (PCP) U Amphetamin/Meth Scrn MDMA (Ecstasy) Screen U Benzodiazepines Scrn Ur Cocaine Metabolite U Marijuana (THC) Screen U Marijuana THC Carboxy Drug Screen Comment Ethyl Alcohol mg/dL 04/05/20 07:34 WBC RBC Hgb Hct MCV MCH MCHC RDW Std Deviation RDW Coeff of Perez Plt Count MPV Immature Gran % (Auto) Neut % (Auto) Lymph % (Auto) [place] % (Auto) Eos % (Auto) Baso % (Auto) Immature Gran # (Auto) Neut # (Auto) Lymph # (Auto) [place] # (Auto) Eos # (Auto) Baso # (Auto) Sodium Potassium Chloride Carbon Dioxide Anion Gap BUN Creatinine Est Cr Clr Drug Dosing Est GFR ( Amer) Est GFR (Non-Af Amer) BUN/Creatinine Ratio Glucose POC Glucose 229 H Estimat Average Glucose Hemoglobin A1c Calcium Total Bilirubin AST ALT Alkaline Phosphatase Total Protein Albumin Globulin Albumin/Globulin Ratio TSH Urine Color Urine Appearance Urine pH Ur Specific Taylor Urine Protein Urine Glucose (UA) Urine Ketones Urine Blood Urine Nitrite Urine Bilirubin Urine Urobilinogen Ur Leukocyte Esterase Urine Test Salicylates Urine Opiates Screen Ur Methadone, Qual Acetaminophen Urine Barbiturates Ur Phencyclidine (PCP) U Amphetamin/Meth Scrn MDMA (Ecstasy) Screen U Benzodiazepines Scrn Ur Cocaine Metabolite U Marijuana (THC) Screen U Marijuana THC Carboxy Drug Screen Comment Ethyl Alcohol mg/dL Hospital Course (1) Mood disorder: 04/02- Differential includes MDD, bipolar, BPD or other personality disorder, and substance induced mood disorder (UDS + THC). Do not see any evidence of autism, but will clarify this with her outpatient psychiatrist. -Continue suicide checks for safety, encourage participation in groups and therapy, work on healthy coping skills and discharge safety plan. -Get collateral information from friends or family and outpatient psychiatrist, and review records to clarify current and past med trials. -Continue duloxetine 80 mg daily for now while attempting to get records and clarify diagnoses and current treatment. -Recommend family meeting with her mother and/or sister in [facility], as she plans to go and stay with them after discharge. 04/03 - Clarified diagnosis with outpatient psychiatrist: depression, anxiety, and cluster B traits are reported. Clarified she is only prescribed duloxetine and prn lorazepam (from PCP) for these diagnoses at this time. - Pt has verbalized willingness to schedule a family meeting with her sister, and reported plans to live with her sister in [place] after discharge - Continue current medication regimen at this time, as patient is reporting improvement in mood now that she has been able to focus attention on aftercare planning 04/04 - Family meeting held with her mother today, and she plans to stay with her temporarily in [place] after discharge, until her PFA hearing on 04/15. Working on discharge safety plan, and plan to ensure ongoing mental health treatment; complicated by PFA in fact the patient is going to [place] to stay with family after discharge, but wants care in [facility]. - Coordinated with Dr. Davison, and patient now agreeing for referral for individual psychotherapy. 04/05 -Although the patient is being given a diagnosis at discharge of major depressive disorder, recurrent, her presentation remains somewhat atypical. She denies that she has had expansive or elated mood, and, instead, describes her mood as being depressed prior to and at the time of admission. It may be that the patient is presenting with symptoms of an agitated depression. We have recommended mood stabilizers, but the patient is declining these medications and says that she feels that her current medications are "all she needs." -Currently, the patient's affect is generally euthymic, and she reports her mood as being "much better." -She plans to live with her family in [place]. There had been some question as to whether she would live with her sister or her mother, but the decision has been for her to live with her mother. (2) Hypertension: 04/02 - Metoprolol 25mg now, get OP med list and resume home meds once clarified 04/03 - Confirmed home dose was metoprolol 25mg BID; however, blood pressure remains rather elevated - Recommending titration to 50mg BID. Risks, benefits, and potential side effects reviewed and patient is agreeable with this change (3) Diabetes: 04/02 - Continue home meds and confirm doses w/ OP records from [facility]. -Diabetic diet, BG per protocol. Consult diabetic pharmacist. 04/05 -The patient is fully conversant with her diabetic medication regimen, including insulin administration. She is also knowledgeable about her diabetic diet and is able to describe her strategies for maintaining optimal blood glucose levels.. Mental Health & Subst Abuse Tx Psychiatrist Name of Psychiatrist: Dr. Davison Psychiatrist's Date of Appointment with Psychiatrist: 04/25/20 Time of Appointment with Psychiatrist: 8am Psychiatrist Release of Information: Obtained, Reviewed and Signed Therapist Name of Therapist: [facility] - Safia Blackburn LCSW Therapist's Date of Therapist Appointment: 04/08/20 Time of Therapist Appointment: 9:00am Therapy Appointment Comment: Linda Olivera, [id number], [place], [place] Therapist Release of Information: Obtained, Reviewed and Signed Solder Making Laborer Name of Solder Making Laborer: . Post Discharge Appointments Primary Care Physician Name Of Family Doctor: Con Oquendo MD Primary Care Date of Appointment with PCP: 04/16/20 Time of Appointment with PCP: 3:30pm Provider Appointment Comment: Zoom appointment Primary Care Release of Information: Obtained, Reviewed and Signed Smoking Cessation Counseling Tobacco Cessation Medication Prescribed at Discharge: Not Applicable/Non-Smoker Contact Information Discharge Discharge Address: [address] [place] [id number] Discharge Plan Discharge Items Patient Disposition: Home - Self-Care Reason For Visit: MDD Discharge Diagnosis: MDD Activity: Resume your previous activity Non-emergency contact: Primary Care Provider and Psychiatrist Call non-emergency contact if: you have any medication questions and your symptoms worsen Follow-up/Referrals: Con Oquendo, DO [Primary Care Provider] - Diet: Carb Count or DM1 Addtl Attending Provider Instructions: SPECIAL CARE INSTRUCTIONS: 1. Follow through with your scheduled aftercare appointments. If unable to keep an appointment, please call to reschedule. 2. Take your medication only as prescribed. Medication should not be changed or stopped without the approval of your doctor. In the event of worsening symptoms or concerns about side effects, contact your doctor immediately. 3. Utilize new healthy coping skills, anger management skills, and stress management skills learned during your hospitalization. Journal feelings and process them with a support person. Identify stressors or situations that may result in relapse, deterioration or inappropriate behaviors and develop a plan to deal with those issues. 4. If your coping skills are ineffective and you are in crisis, contact your outpatient providers for direction. If unable to reach your providers, please call the CAN HELP LINE AT or go to the closest Emergency Room. 5. Avoid alcohol and un-prescribed drugs. 6. You have been provided with the Mental Health Advance Directives Pamphlet for your review. AFTERCARE APPOINTMENTS: * Please call your insurance company prior to your scheduled appointment to confirm your aftercare providers are covered. Take your insurance information to your appointments. WHO TO CALL AND WHEN: Medical Emergencies: For questions or emergencies related to your hospital stay, please contact the Inpatient Behavioral Health Unit at [phone]. A window dresser is on-call 10/05 for the Behavioral Health Unit for emergencies At any time you feel your situation is an emergency, you may also call 911 immediately. Your Doctors Instructions noted above were prepared by provider Seth Stahl MD. Pending Studies at Discharge: No Stand-Alone Forms: My [facility] [employer], Smoking Cessation Medications and DC Order Prescriptions: Continued lorazepam 1 mg Tablet 1 mg PO BID PRN (Reason: Anxiety) RF: 0 duloxetine 20 mg capsule,delayed release(DR/EC) 80 mg PO DAILY RF: 0 Trulicity 0.75 mg/0.5 mL pen injector See Rx Instructions .ROUTE .COMPLEX RF: 0 Lantus Solostar U-100 Insulin 100 unit/mL (3 mL) insulin pen 15 unit SUBCUT HS RF: 0 metoprolol tartrate 25 mg tablet 25 mg PO BID RF: 0 ondansetron HCl [Zofran] 4 mg Tablet 4 mg PO Q8H PRN (Reason: Nausea) RF: 0 hydroxyzine HCl 50 mg Tablet 50 mg PO HS PRN (Reason: Sleep) RF: 0 metformin 1,000 mg Tablet 1,000 mg PO BID RF: 0 omeprazole 20 mg Capsule,Delayed Release(Dr/Ec) 20 mg PO DAILY RF: 0 aspirin 81 mg Tablet,Chewable 81 mg PO DAILY RF: 0 loratadine [Claritin] 10 mg Tablet 10 mg PO DAILY RF: 0 cholecalciferol (vitamin D3) 50 mcg (2,000 unit) Tablet 50 mcg PO DAILY RF: 0 Mucinex D 600 mg PO DAILY RF: 0 Discharge Orders: Discharge Order (Routine); Ordered 04/05/20 Ordered By: Seth Narvaez/Other Patient Handouts: High Blood Sugar (Hyperglycemia), Hypoglycemia (Low Blood Sugar), Managing Type 2 Diabetes Admission Data Admit Date/Time: 04/02/20 03:36 Attending Provider: Rachell Chanel Admit Provider: Rachell Chanel Primary Care Provider: Con Oquendo Other Interventions: Discharge Summary Assessment (RN) Last Done: 04/05/20 10:27 PSY Interdisciplinary Discharge Planning Last Done: 04/05/20 10:14 DC Date/Time DO NOT enter until pt leaves facility: 04/05/20 10:50 C[place] [address] D/C day mgmt > 30 min Patient Type Established History Expanded Problem Focused Medical Decision Making Moderate Complexity Diagnoses Mood disorder F39 Hypertension I10 Diabetes E11.9 Time Spent (min) 60
== END 2020-04-05 10:50 | disposition home or self-care (01) | DRG 885 ==
LOC: ED 20:43 → 3S 04-02 03:28